=== PATIENT | male | born 1990 | race Caucasian/White ===

== ENCOUNTER 2023-07-26 15:42 | Emergency (ER) | payer MEDICARE ==
[2023-07-26 18:11] VITALS: BP 109/93; PULSE 97; RESP 18; TEMP 97.2; O2SAT 98
--- NOTE | 2023-07-26 18:22 | ERPHSYRPT ---
- History of Present Illness Time Seen by Provider: 07/26/23 18:05 Source: patient Exam Limitations: no limitations Physician History: Pt c/o hemorrhoidal pain for the past 2 months; states there was blood on his stool today; denies abdominal pain, vomiting, fever, nausea. Allergies/Adverse Reactions: No Known Drug Allergies Allergy (Unverified 07/26/23 18:07) Home Medications: No Reportable Medications [No Reported Medications] 07/26/23 [History] - Review of Systems Constitutional: No Fever Abdominal/Gastrointestinal: Other (hemorrhoids), No Abdominal Pain, No Nausea, No Vomiting - Nursing Vital Signs Nursing Vital Signs: Initial Vital Signs Temperature 97.2 F 07/26/23 18:08 Pulse Rate 97 H 07/26/23 18:08 Respiratory Rate 18 07/26/23 18:08 Blood Pressure 109/93 07/26/23 18:08 O2 Sat by Pulse Oximetry 98 07/26/23 18:08 Pain Scale Pain Intensity [Sacrum] 6 Pain Intensity 6 - Physical Exam General Appearance: alert Eye Exam: PERRL/EOMI Ears, Nose, Throat Exam: TMs normal, pharynx normal, moist mucous membranes Neck Exam: normal inspection Respiratory Exam: normal breath sounds, airway intact Cardiovascular Exam: normal heart sounds Gastrointestinal/Abdomen Exam: soft, normal bowel sounds Rectal Exam: tenderness (mild - no external hemorrhoids present(ER Nurse present during exam)) Extremity Exam: No swelling Neurologic Exam: alert, cooperative Skin Exam: warm, dry SpO2 Interpretation: normal SpO2: 98 O2 Delivery: Room Air - Progress Progress: unchanged Counseled pt/family regarding: diagnosis - Departure Departure Disposition: Home Clinical Impression: Hemorrhoids Condition: Stable Critical Care Time: No Instructions: Hemorrhoids Additional Instructions: Follow up with private doctor tomorrow. Use Sitz baths. Use annusol as needed.
== END 2023-07-26 18:40 | disposition left against medical advice (07) ==
LOC: ED 15:42
DX: K64.9 Unspecified hemorrhoids (principal)
CPT/HCPCS: 99281